=== PATIENT | male | born 1940 | race Caucasian/White ===

== ENCOUNTER 2016-10-22 06:41 | Day surgery (SDC) | payer OTHER ==
[2016-10-07 10:29] VITALS: Ht 172.7 cm; Wt 75.0 kg
--- NOTE | 2016-10-07 11:14 | PAT Medication Instructions ---
Service Date Oct 07, 2016. Current Home Medication List Albuterol (Proair Hfa), 2 PUFF INH Q4H PRN for SOB/Wheezing Aspirin (Aspirin Ec), 81 MG PO QAM Atorvastatin (Lipitor), 20 MG PO QAM Citalopram (Citalopram Hydrobromide), 20 MG PO QAM Donepezil Hydrochloride (Aricept), 10 MG PO QPM Finasteride (Proscar), 5 MG PO HS Fluticasone Propionate (Fluticasone Propionate), 1 SPRAY NA DAILY Folic Acid (Folvite *), 1 MG PO QAM Hydrocortisone (Hydrocortisone 2.5%), 1 APPLN TOP BID PRN Loratadine (Claritin), 10 MG PO QAM Methotrexate (Methotrexate), 15 MG PO WK Metoprolol Succinate (Toprol Xl), 25 MG PO QAM Omeprazole (Prilosec), 20 MG PO QAM Prednisone (Prednisone), 10 MG PO QAM Tamsulosin Hcl (Flomax), 0.4 MG PO HS Tiotropium [place] (Spiriva Handihaler), 1 CAP INH DAILY PRN for SOB/Wheezing Medication Instructions For Your Scheduled Surgery Aspirin (Aspirin Ec), 81 MG PO QAM (surgeon will call you with instructions) Methotrexate (Methotrexate), 15 MG PO WK (patient will check with whipped topping mixer for instructions) - Hold the following medications 24 hours prior to surgery: Hydrocortisone (Hydrocortisone 2.5%), 1 APPLN TOP BID PRN - Hold the following medications the morning of surgery: Loratadine (Claritin), 10 MG PO QAM Folic Acid (Folvite *), 1 MG PO QAM - Take the following medications the morning of surgery with a sip of water: Tiotropium [place] (Spiriva Handihaler), 1 CAP INH DAILY PRN for SOB/Wheezing Prednisone (Prednisone), 10 MG PO QAM Omeprazole (Prilosec), 20 MG PO QAM Metoprolol Succinate (Toprol Xl), 25 MG PO QAM Fluticasone Propionate (Fluticasone Propionate), 1 SPRAY NA DAILY Atorvastatin (Lipitor), 20 MG PO QAM Citalopram (Citalopram Hydrobromide), 20 MG PO QAM Albuterol (Proair Hfa), 2 PUFF INH Q4H PRN for SOB/Wheezing (bring with you to hospital on day of surgery) - Take the following medications as scheduled the night before surgery: Tamsulosin Hcl (Flomax), 0.4 MG PO HS Finasteride (Proscar), 5 MG PO HS Donepezil Hydrochloride (Aricept), 10 MG PO QPM Albuterol (Proair Hfa), 2 PUFF INH Q4H PRN for SOB/Wheezing If you have any questions please call us at [phone] or [phone] ( Reyna) or [phone]
--- NOTE | 2016-10-07 12:00 | DIAGNOSTIC IMAGING REPORT ---
CHEST 2 VIEWS ROUTINE CLINICAL HISTORY: Preoperative chest. COMPARISON STUDY: 04/04/2012 FINDINGS: The cardiac and mediastinal contours remain stable. Underlying emphysema is suspected.[There is no failure. There is no lobar consolidation. There are no pleural effusions. There is an equivocal 11 mm right upper lung zone nodule. CT scanning is recommended in follow-up. On the lateral view, there are multiple nonspecific upper abdominal calcifications. IMPRESSION: Equivocal 11 mm right upper lung zone pulmonary nodule. CT scanning is recommended in follow-up. Electronically signed by: Cody Deluna M.D. 10/07/2016 11:58 AM Dictated Date/Time: 10/07/2016 11:54 AM
[2016-10-07 12:03] LABS: BASO % 0.2 %; BASO ABS # 0.02 K/uL (0-0.2); COMPLETE YES; EOS % 0.9 %; HEMATOCRIT 44.8 % (42-52); IG% 0.3 %; LYMPH % 12.8 %; LYMPH ABS # 1.28 K/uL (1.2-3.4); MEAN CELL VOLUME 98.7 fL (80-100); MEAN CORPUSCULAR HEMOGLOBIN 32.4 pg (25-34); MEAN CORPUSCULAR HGB CONC 32.8 g/dl (32-36); MEAN PLATELET VOLUME 9.5 fL (7.4-10.4); NEUT % 77.8 %; PLATELET COUNT 246 K/uL (130-400); RED BLOOD COUNT 4.54 M/uL (4.7-6.1); WHITE BLOOD COUNT 9.97 K/uL (4.8-10.8)
[2016-10-07 12:03] LABS: URINE APPEARANCE CLEAR (CLEAR); URINE BILIRUBIN NEG (NEG); URINE COLOR YELLOW; URINE NITRITE NEG (NEG); URINE PH 5.5 (4.5-7.5); URINE SPECIFIC GRAVITY 1.006 (1.000-1.030); UROBILINOGEN NEG (NEG)
[2016-10-07 12:10] LABS: MANUAL MICROSCOPIC REQUIRED? NO; REVIEW REQ? NO
--- NOTE | 2016-10-07 12:28 | DIAGNOSTIC IMAGING REPORT ---
CERVICAL SPINE 3 VIEWS CLINICAL HISTORY: Preoperative examination. FINDINGS: Lateral views of the cervical spine in the neutral, flexion, and extension positions are obtained. No prior studies are available for comparison at the time of dictation. The skeletal structures are osteopenic. There is no radiographic evidence of fracture on these lateral views. The spinolaminar line appears intact. The atlantodental articulation appears maintained. There is 5 mm of anterolisthesis at C3-C4 and 3 mm of anterolisthesis at C4-C5. Minimal retrolisthesis is present at C5-C6. This persists on the flexion/extension views. No worsening bony subluxation is identified on flexion/extension. Anterior osteophytes are seen from C4 through C6. Advanced degenerative disc space narrowing is identified at C5-C6 and C6-C7. Moderate narrowing is seen at C4-C5. Posterior disc osteophyte complexes from C4-C5 through C6-C7 likely contribute to acquired compromise of the central canal. The spinous processes appear intact. Facet arthropathy is noted in the lower cervical region. The prevertebral soft tissues are within normal limits. A cardiac pacemaker and pacemaker leads are identified. IMPRESSION: 1. Osteopenia and spondylotic change as above. 2. No acute bony abnormality is identified. 3. There is no progressive bony subluxation on the flexion/extension views. Dictated: 10/07/2016 11:51 AM Transcribed: 10/07/2016 12:27 PM [email or web address] Electronically signed by: Justice Nava M.D. 10/07/2016 12:36 PM Dictated Date/Time: 10/07/2016 11:51 AM
[2016-10-07 13:31] LABS: BUN/CREATININE RATIO 16.6 (10-20); CALCIUM 9.1 mg/dl (8.5-10.1); CREATININE 1.1 mg/dl (0.60-1.40); POTASSIUM 4.4 mmol/L (3.5-5.1)
[~2016-10-22] VITALS: Ht 172.7 cm; Wt 75.0 kg
[~2016-10-22 06:41] MED LIST: ALBU1AER9 INH; ANSHCCR/ TOP; ASPI81TA28 PO; ATOR-22 PO; CIPROFLOXACIN / D5W 400 MG IV SCH; CLR10 PO; CLX20 PO; DONE10TA12 PO; FINA5TAB PO; FLNIN/; FLV1 PO; LACTATED RINGER'S 1000ML IV SCH; METH2.5T PO; METO25TA3 PO; PRED-301 PO; PRLSR20 PO; TAMS0.4C38 PO; TIOTCAP INH
[2016-10-22] MEDS ORDERED: FENTANYL CITRATE INJ 50 MCG/1 ML 2 ML VIAL ONE (07:37)
[2016-10-22] MEDS ORDERED: PROPOFOL IV EMULSION 10 MG/ML 20 ML VIAL IV ONE ×2 (07:37→08:32)
[2016-10-22] MEDS ORDERED: LIDOCAINE HCL 2% 2 ML VIAL (20MG/ML) ONE ×2 (07:37→08:32)
[2016-10-22] MEDS ORDERED: MIDAZOLAM HCL 1 MG/ML 2ML VIAL ONE (07:37)
[2016-10-22] MEDS ORDERED: ONDANSETRON INJ 2 MG/ML 2 ML VIAL ONE ×2 (07:37→08:32)
[2016-10-22] MEDS ORDERED: DEXAMETHASONE SOD INJ 4 MG/ML VIAL ONE ×3 (07:37→09:19)
[2016-10-22 07:38] VITALS: BP 145/81; PULSE 70; TEMP 36.6; O2SAT 97
--- NOTE | 2016-10-22 07:46 | History & Physical Bridge Note ---
H&P Re-Evaluation Bridge Note: I have examined the patient, reviewed the History & Physical and in the interval since the performance of the History & Physical I have noted the following changes of clinical significance: No changes noted
[2016-10-22] MEDS ORDERED: BUPIVACAINE 0.5 % 5 MG/1 ML MPF 30ML VIAL ONE (08:05)
[2016-10-22] MEDS ORDERED: BACI500O11 TOP (08:22)
[2016-10-22] MEDS ORDERED: SULF800T23 PO (08:22)
[2016-10-22] MEDS ORDERED: OXYC-57 PO (08:22)
[2016-10-22] MEDS ORDERED: PHEN-939 PO (08:22)
[2016-10-22] MEDS ORDERED: BACITRACIN OINT 15 GM TUBE ONE (08:53)
[2016-10-22] MEDS ORDERED: ONDANSETRON INJ 2 MG/ML 2 ML VIAL IV PRN (09:15)
[2016-10-22] MEDS ORDERED: ATROPINE SULFATE 0.1 MG/ML 5ML SYR IV PRN (09:15)
[2016-10-22] MEDS ORDERED: FENTANYL CITRATE INJ 50 MCG/1 ML 2 ML VIAL IV PRN (09:15)
[2016-10-22] MEDS ORDERED: LABETALOL HCL IV 5 MG/ML 20ML IV PRN (09:15)
[2016-10-22] MEDS ORDERED: KETOROLAC TROMETHAMINE 30 MG/ML VIAL IV. PRN (09:15)
[2016-10-22] MEDS ORDERED: BELLADONNA/OPIUM SUPP 60 MG SUPP PR ONE (09:19)
--- NOTE | 2016-10-22 09:50 | Discharge Instructions ---
Discharge Instructions Date of Service October 22, 2016. Admission Reason for Admission: Phimosis, Benign Prostatic Hypertrophy Discharge Discharge Diagnosis / Problem: BPH, phimosis s/p GLTURP and circumcision Discharge Goals Goal(s): Decrease discomfort, Improve function, Improve disease control, Therapeutic intervention Activity Recommendations Activity Limitations: per Instructions/Follow-up section Lifting Limitations: no more than 25 pounds, gradually increase as tolerated ( over first week) Exercise/Sports Limitations: until after follow-up appointment May Resume Sexual Activity: after two weeks Shower/Bathe: tomorrow (may shower, no tub bath for 2 weeks) . Instructions / Follow-Up Instructions / Follow-Up As scheduled for postop visit and catheter removal Bacitracin ointment to incision for 2 weeks Remove dressing in 24 hours, sooner if uncomfortable Catheter to gravity drainage, some blood expected Discharge Diet Recommended Diet: Regular Diet (good fluid intake) Procedures Procedures Performed: Circumcision, GLTURP Pending Studies Studies pending at discharge: yes List of pending studies: Path report Medical Emergencies . Who to Call and When: Medical Emergencies: If at any time you feel your situation is an emergency, please call 911 immediately. . Non-Emergent Contact Non-Emergency issues call your: Urologist Call Non-Emergent contact if: you have a fever, temperature is above 101, your pain is not controlled, your pain is worsening, your pain is unusual for you, your pain is concerning you, wound has increased drainage, wound has increased redness, wound has increased pain, you have any medication questions . . "Provider Documentation" section prepared by Anand Chen. . VTE Core Measure Inpt VTE Proph given/why not?: SCD's [place] Drug Monitoring Program Search Results: patient reviewed within database, no issues identified
--- NOTE | 2016-10-22 09:53 | [facility] Post Operative Brief Note ---
Immediate Operative Summary Operative Date October 22, 2016. Pre-Operative Diagnosis Benign prostatic hypertrophy with urinary obstruction, paraphimosis, urinary retention, urinary tract infection Post-Operative Diagnosis Same as preoperative diagnosis Procedure(s) Performed Circumcision, GLTURP Surgeon Dr. Anand Chen Associate Music Professor Surgeon(s) None Estimated Blood Loss 10 mL Findings Open fossa, 73K J used, excellent cosmesis and hemostasis on circ Specimens Permanent specimens A: Foreskin Drains 20 fr 10 cc H2O Anesthesia GALMA + local Complication(s) None Disposition Recovery Room / PACU
[2016-10-22] MEDS ORDERED: PHENAZOPYRIDINE HCL 100 MG TAB PO PRN (10:00)
[2016-10-22] MEDS ORDERED: OXYCODONE/ACETAMINOPHEN 5-325 TAB PO PRN (10:00)
--- NOTE | 2016-10-22 10:39 | Anesthesiology Progress Note ---
Anesthesia Post Op Note Date & Time October 22, 2016 at 10:39 Vital Signs Pain Intensity: 0 Vital Signs Past 12 Hours Date Time Temp Pulse Resp B/P Pulse Ox O2 Delivery O2 Flow Rate FiO2 10/22/16 10:35 36.5 60 19 153/79 95 Room Air 10/22/16 10:31 60 16 97 10/22/16 10:31 60 16 10/22/16 10:30 143/78 10/22/16 10:26 60 16 10/22/16 10:26 60 16 97 10/22/16 10:25 144/79 10/22/16 10:22 60 19 96 10/22/16 10:22 60 19 10/22/16 10:20 146/72 10/22/16 10:17 60 15 96 10/22/16 10:17 60 15 10/22/16 10:16 60 20 10/22/16 10:16 60 20 96 10/22/16 10:15 142/78 10/22/16 10:11 60 18 100 10/22/16 10:11 60 18 10/22/16 10:10 150/72 10/22/16 10:09 60 16 100 10/22/16 10:09 60 16 10/22/16 10:05 139/83 10/22/16 10:04 60 20 100 10/22/16 10:04 60 20 10/22/16 10:03 60 19 100 10/22/16 10:03 60 19 10/22/16 10:01 128/79 10/22/16 09:58 60 19 10/22/16 09:58 60 19 100 10/22/16 09:55 148/78 10/22/16 09:53 60 16 10/22/16 09:53 60 16 100 10/22/16 09:50 150/77 10/22/16 09:48 61 29 140/74 100 10/22/16 09:48 36.1 61 16 140/74 100 Mask 10 10/22/16 09:48 61 29 10/22/16 07:38 36.6 70 20 145/81 97 Room Air Notes Mental Status: alert / awake / arousable, participated in evaluation Pt Amnestic to Procedure: Yes Nausea / Vomiting: adequately controlled Pain: adequately controlled Airway Patency, RR, SpO2: stable & adequate BP & HR: stable & adequate Hydration State: stable & adequate Anesthetic Complications: no major complications apparent
[2016-10-22 10:40] VITALS: BP 147/78; PULSE 62; TEMP 36.5; O2SAT 97
[2016-10-22 11:10] VITALS: BP 132/63; PULSE 60; TEMP 36; O2SAT 98
--- NOTE | 2016-10-22 11:43 | OPERATIVE REPORT ---
DATE OF OPERATION: 10/22/2016 PREOPERATIVE DIAGNOSES: Phimosis, history of paraphimosis, benign prostatic hypertrophy with urinary retention and history of urinary tract infection. POSTOPERATIVE DIAGNOSES: Same. PROCEDURE: Circumcision and GreenLight vaporization of the prostate. SURGEON: Anand Chen MD RECORD RETRIEVAL SPECIALIST: None. ANESTHESIA: General anesthesia with laryngeal mask plus penile block. COMPLICATIONS: None. ESTIMATED BLOOD LOSS: 10 mL. SPECIMENS SENT TO PATHOLOGY: Foreskin. DRAINS LEFT IN PLACE: Include a 20-Kyr[place]z Paniagua catheter with 10 mL of sterile water in the balloon. FINDINGS: Excellent cosmesis and hemostasis of circumcision, excellent hemostasis after GreenLight TURP with 73,000 joules of energy used. BRIEF HISTORY OF PRESENT ILLNESS: Mr. Szymanski is a 76-year-old male who I have seen as an outpatient for history of difficulties with intermittent urinary retention, urinary tract infection and bothersome voiding symptoms despite maximum medical therapy. He also has a history of recurrent paraphimosis, which has been bothersome. He is being brought to the operating room for GreenLight vaporization of the prostate to manage his obstructive urinary symptoms and wishes to have the circumcision at the same time for his history of paraphimosis. Please see H\T\P for further details. Intravenous ciprofloxacin provided for antibiotic coverage and SCDs used for DVT prophylaxis. DESCRIPTION OF PROCEDURE: The patient was properly identified and brought to the operative suite. After identification and appropriate consent on the chart, general anesthesia with laryngeal mask was initiated. The patient was prepped and draped in standard fashion for this procedure. time study technician-out procedure was followed. A penile ring block was performed using plain local anesthesia for additional postoperative analgesia. After this was done, the penis was marked with proximal and distal ring, which were then incised. Excess foreskin was removed using Bovie cautery and Metzenbaum scissors as necessary in a sleeve fashion. After this was removed, it was sent for pathologic analysis. Hemostasis was obtained using Bovie as necessary for superficial bleeders and then, the 2 skin edges were reapproximated using interrupted 2-0 Vicryl, 3-0 Chromic and 3-0 Vicryl suture. The excess skin at the level of the frenulum was removed and a box suture was used at the 6 o'clock position. After this was complete, excellent hemostasis and cosmesis of the closure was noted with good penile skin coverage. Attention was then turned to the GreenLight vaporization of the prostate. GreenLight laser resectoscope was introduced into the bladder using a visual obturator entered under direct visualization. A short but obstructive prostate gland was noted. Grade II trabeculation of the bladder was appreciated with no intravesical papillary lesions, calculi or masses. No worrisome mucosal changes were noted. Ureteral orifices were noted to be in the normal anatomic location and effluxing clear yellow urine. Using a side fire laser resectoscope, circumferential vaporization of the prostate was completed for a total of 73,000 joules of energy. Relaxing incisions were made at the 5 and 7 o'clock position to avoid bladder neck contracture and the bladder neck was dropped down to the level of the trigone of the bladder. Great care was taken to avoid injuring the ureteral orifices, which were noted to be free of any damage at the end of the case. After this was completed, the prostate was noted to be visually unobstructed with excellent hemostasis. Bladder was partially distended and resectoscope was removed. A 20-Kyr[place]z Paniagua catheter was placed with return of clear yellow urine with 10 mL of sterile water in the balloon. Catheter was placed to gravity drainage and a sterile dressing was placed over the circumcision using bacitracin, Xeroform sponge and a gently wrapped Coban. Belladonna and opium suppository were provided for additional postoperative analgesia. Anesthesia was reversed. The patient was transferred to recovery room in stable condition. FOLLOWUP CARE: The patient will be discharged home with Paniagua catheter in place. Outpatient trial of void is arranged as well as postoperative visit. He is provided with a prescription for Bactrim for antibiotic coverage, Percocet, Pyridium and bacitracin for his incision. Wound care is reviewed with the patient and the patient's family. The patient is instructed to contact our service should he note any fevers, chills, nausea, vomiting or other significant difficulties in the postoperative period. I attest to the content of the Intraoperative Record and any orders documented therein. Any exceptio ns are noted below.
[2016-10-22 11:50] VITALS: BP 132/71; PULSE 63; TEMP 36.8; O2SAT 99
[2016-10-22] MEDS ORDERED: CIPROFLOXACIN 400MG / D5W IV SCH (14:45)
== END 2016-10-22 12:12 | disposition home or self-care (01) ==
LOC: C.ACU 06:41
PROVIDERS: ATTEND Urology
DX: N47.1 Phimosis (principal); N40.1 Benign prostatic hyperplasia with lower urinary tract symptoms; N13.8 Other obstructive and reflux uropathy; R33.9 Retention of urine, unspecified; N39.0 Urinary tract infection, site not specified; I10 Essential (primary) hypertension; J44.9 Chronic obstructive pulmonary disease, unspecified; G47.33 Obstructive sleep apnea (adult) (pediatric); M19.90 Unspecified osteoarthritis, unspecified site; F32.9 Major depressive disorder, single episode, unspecified; Z79.82 Long term (current) use of aspirin; Z88.0 Allergy status to penicillin; Z87.891 Personal history of nicotine dependence; Z68.25 Body mass index [BMI] 25.0-25.9, adult; Z80.9 Family history of malignant neoplasm, unspecified; Z82.49 Family history of ischemic heart disease and other diseases of the circulatory system

== ENCOUNTER 2016-10-28 11:11 | Observation (INO) | payer OTHER ==
[~2016-10-28] VITALS: Ht 170.2 cm; Wt 75.0 kg
[~2016-10-28 11:11] MED LIST changes: +BACI500O11 TOP; -CIPROFLOXACIN / D5W 400 MG IV SCH; -LACTATED RINGER'S 1000ML IV SCH; +OXYC-57 PO; +PHEN-939 PO; +SULF800T23 PO
[2016-10-28] MEDS ORDERED: CEFTRIAXONE SOD INJ 1 GM ADDVIAL IV STA (11:35)
[2016-10-28] MEDS ORDERED: SODIUM CHLORIDE 0.9% 1000ML 1,000 ML IV STA (11:35)
[2016-10-28] MEDS ORDERED: FOLI1TAB7 PO (11:38)
[2016-10-28] MEDS ORDERED: VNTHFA/IN INH (11:38)
[2016-10-28] MEDS ORDERED: SPRIN/30 INH (11:38)
[2016-10-28 11:43] LABS: BASO % 0.1 %; BASO ABS # 0.01 K/uL (0-0.2); COMPLETE YES; EOS % 1.2 %; HEMATOCRIT 42.8 % (42-52); IG% 0.2 %; LYMPH ABS # 1.06 K/uL (1.2-3.4); MEAN CELL VOLUME 97.9 fL (80-100); MEAN CORPUSCULAR HEMOGLOBIN 32.5 pg (25-34); MEAN CORPUSCULAR HGB CONC 33.2 g/dl (32-36); MEAN PLATELET VOLUME 9.9 fL (7.4-10.4); MONO % 11.8 %; NEUT % 78.7 %; PLATELET COUNT 233 K/uL (130-400); RED BLOOD COUNT 4.37 M/uL (4.7-6.1); WHITE BLOOD COUNT 13.32 K/uL (4.8-10.8)
[2016-10-28 11:56] LABS: ALT/SGPT 23 U/L (12-78); AST/SGOT 16 U/L (15-37); BLOOD UREA NITROGEN 23 mg/dl (7-18); BUN/CREATININE RATIO 17.8 (10-20); CALCIUM 8.5 mg/dl (8.5-10.1); CARBON DIOXIDE 29 mmol/L (21-32); CHLORIDE 102 mmol/L (98-107); GLUCOSE 116 mg/dl (70-99); INR 1.1 (0.9-1.1); PARTIAL THROMBOPLASTIN RATIO 1.1; POTASSIUM 4.1 mmol/L (3.5-5.1); PROTHROMBIN TIME (PATIENT) 11.4 SECONDS (9.0-12.0); SODIUM 136 mmol/L (136-145)
[2016-10-28 12:01] LABS: ALKALINE PHOSPHATASE 59 U/L (45-117); CKMB/CK RATIO 2.1 (0-3.0)
--- NOTE | 2016-10-28 12:04 | DIAGNOSTIC IMAGING REPORT ---
CHEST ONE VIEW PORTABLE CLINICAL HISTORY: Fever. Sepsis. COMPARISON STUDY: Chest radiograph October 07, 2016. FINDINGS: 1.4 cm nodular density projecting over the posterior right ninth rib is unchanged since exam of April 04, 2012. This is likely benign. A dual lead right pacemaker is in place. There is no evidence of pulmonary edema. No pneumothorax or pleural effusion is present. A 1.1 cm nodular density projecting over left lower lung is noted. IMPRESSION: 1. No acute cardiopulmonary findings. 2. 1.1 cm nodular density projecting over left lower lung which was likely present on prior exams. This could reflect a nodule or nipple shadow. This is probably benign. Electronically signed by: Tano Acuna M.D. 10/28/2016 12:02 PM Dictated Date/Time: 10/28/2016 12:00 PM
--- NOTE | 2016-10-28 12:19 | DIAGNOSTIC IMAGING REPORT ---
CT HEAD WITHOUT CONTRAST (CT) CLINICAL HISTORY: Confusion, fever, sepsis. COMPARISON STUDY: No previous studies for comparison. TECHNIQUE: Axial CT of the brain is performed from the vertex to the skull base. IV contrast was not administered for this examination. CT DOSE: 537.48 mGy.cm FINDINGS: There is a left middle cranial fossa arachnoid cyst. There is no CT evidence of acute cortical infarction. There is no midline shift. There is no acute hemorrhage. There are patchy white matter hypodensities likely on a small vessel basis. There is no evidence of pathologic ventricular dilatation. There is no evidence of acute sinusitis IMPRESSION: Left anterior temporal arachnoid cyst. No acute intracranial findings. Electronically signed by: Cody Deluna M.D. 10/28/2016 12:17 PM Dictated Date/Time: 10/28/2016 12:16 PM
[2016-10-28 13:33] LABS: URINE APPEARANCE CLEAR (CLEAR); URINE BILIRUBIN NEG (NEG); URINE COLOR YELLOW; URINE EPITHELIAL CELL AUTO 0-5 /lpf (0-5); URINE NITRITE NEG (NEG); URINE SPECIFIC GRAVITY 1.013 (1.000-1.030); UROBILINOGEN NEG (NEG); ZZURINE CULT IF INDIC CATH NO
[2016-10-28 13:42] LABS: MANUAL MICROSCOPIC REQUIRED? NO; REVIEW REQ? NO
--- NOTE | 2016-10-28 15:00 | EMERGENCY ROOM VISIT NOTE ---
History Report prepared by Deepak: Sharon Alves Under the Supervision of: Dr. Connor Azevedo D.O. First contact with patient: 11:35 Chief Complaint: CONFUSION Stated Complaint: CONFUSION,SURGERY ON PROSTATE ON 10/22/16,IN PAIN Nursing Triage Summary: pt c/o back pain, moving about on the bed, unable to find a comfortable position. Per family, pt had prostate surgery recently and had the catheter removed a few days ago and that he has been hallucinating, undressing inappropriate times. They notice the confusion more at night. History of Present Illness The patient is a 76 year old male who presents to the Emergency Room with complaints of constant confusion beginning 6 days ago. The patient's sister reports that the patient had prostate surgery and was circumcised 6 days ago and was doing alright after the surgery but seemed much more energized than usual. She states that the patient seemed more confused and when he went to get his catheter removed a few days ago the doctor told her to come in to the ED. She reports that the patient was taken off Bactrim at the appointment and she reports that he never took the Oxycodone that he was prescribed. The patient complains of constant back pain beginning a few months ago that has not changed , non-productive cough, and constant drowsiness. He denies any fever, headache, abdominal pain, chest pain, shortness of breath, and difficulty urinating. The sister reports that the patient hallucinates and sometimes talks to people that aren't there and has slight dementia but this unusual behavior since his surgery. The patient states that he has not seen Dr. Chen, who did his surgery , in a couple of months and his notes that he saw him a few days ago. Source of History: patient, family Onset: 6 days ago Position: other (global) Quality: other (confusion) Timing: constant Associated Symptoms: + cough, No SOB, No abdominal pain, No chest pain, No fevers, No headache, No urinary symptoms Note: The patient complains of constant drowsiness. His notes hallucinations. Review of Systems See HPI for pertinent positives & negatives. A total of 10 systems reviewed and were otherwise negative. Past Medical & Surgical Medical Problems: (1) Cellulitis (2) COPD (chronic obstructive pulmonary disease) (3) Early onset Alzheimer's dementia (4) HLD (hyperlipidemia) (5) HTN (hypertension) (6) Osteoporosis (7) Rheumatoid arthritis (8) Sinus node dysfunction Surgical Problems: (1) History of carpal tunnel surgery (2) S/P bunionectomy Family History Diabetes mellitus FH: gallbladder disease FH: heart disease Hypertension Social History Smoking Status: Former Smoker Alcohol Use: none Marital Status: Housing Status: lives with family Current/Historical Medications Scheduled Aspirin (Aspirin Ec), 81 MG PO QAM Atorvastatin (Lipitor), 20 MG PO QAM Bacitracin (Topical) (Bacitracin), 1 APPLN TOP TID Citalopram (Citalopram Hydrobromide), 20 MG PO QAM Donepezil Hydrochloride (Aricept), 10 MG PO QPM Finasteride (Proscar), 5 MG PO HS Fluticasone Propionate (Fluticasone Propionate), 1 SPRAY NA DAILY Folic Acid (Folvite), 1 MG PO DAILY Loratadine (Claritin), 10 MG PO QAM Methotrexate (Methotrexate), 15 MG PO WK Metoprolol Succinate (Toprol Xl), 25 MG PO QAM Omeprazole (Prilosec), 20 MG PO QAM Prednisone (Prednisone), 10 MG PO QAM Tamsulosin Hcl (Flomax), 0.4 MG PO HS Tiotropium [place] (Spiriva Handihaler), 1 CAP INH DAILY Scheduled PRN Albuterol Hfa (Ventolin Hfa), 2 PUFFS INH Q4 PRN for SOB/Wheezing Hydrocortisone (Hydrocortisone 2.5%), 1 APPLN TOP BID PRN Allergies Coded Allergies: Penicillins (Verified Allergy, Unknown, reaction unknown, 10/22/16) Physical Exam Vital Signs Date Time Temp Pulse Resp B/P Pulse Ox O2 Delivery O2 Flow Rate FiO2 10/28/16 14:01 61 18 139/94 97 Room Air 10/28/16 13:05 76 10/28/16 12:39 64 20 136/62 94 Room Air 10/28/16 12:31 69 10/28/16 11:16 36.6 76 20 115/70 94 Room Air Physical Exam CONSTITUTIONAL/VITAL SIGNS: Reviewed / noted above. GENERAL: Non-toxic in appearance. INTEGUMENTARY: Warm, dry, and [place]. HEAD: Normocephalic. EYES: without scleral icterus or trauma. ENT/OROPHARYNX: clear and moist. LYMPHADENOPATHY/NECK: Is supple without lymphadenopathy or meningismus. RESPIRATORY: Lungs clear and equal. CARDIOVASCULAR: Regular rate and rhythm. GI/ABDOMEN: Soft and nontender. No organomegaly or pulsatile mass. No rebound or guarding. Normal bowel sounds. EXTREMITIES: Warm and well perfused. BACK: No CVA tenderness. NEUROLOGICAL: Intact without focal deficits. PSYCHIATRIC: normal affect. MUSCULOSKELETAL: Normally developed with good muscle tone. : There are sutures in place consistent with recent circumcision, no obvious infection or abnormal discharge. Medical Decision & Procedures ER Provider Diagnostic Interpretation: Radiology results as stated below per my review and radiologist interpretation: CHEST ONE VIEW PORTABLE FINDINGS: 1.4 cm nodular density projecting over the posterior right ninth rib is unchanged since exam of April 04, 2012. This is likely benign. A dual lead right pacemaker is in place. There is no evidence of pulmonary edema. No pneumothorax or pleural effusion is present. A 1.1 cm nodular density projecting over left lower lung is noted. IMPRESSION: 1. No acute cardiopulmonary findings. 2. 1.1 cm nodular density projecting over left lower lung which was likely present on prior exams. This could reflect a nodule or nipple shadow. This is probably benign. Electronically signed by: Tano Acuna M.D. 10/28/2016 12:02 PM Dictated Date/Time: 10/28/2016 12:[address] HEAD WITHOUT CONTRAST (CT) FINDINGS: There is a left middle cranial fossa arachnoid cyst. There is no CT evidence of acute cortical infarction. There is no midline shift. There is no acute hemorrhage. There are patchy white matter hypodensities likely on a small vessel basis. There is no evidence of pathologic ventricular dilatation. There is no evidence of acute sinusitis IMPRESSION: Left anterior temporal arachnoid cyst. No acute intracranial findings. Electronically signed by: Cody Deluna M.D. 10/28/2016 12:17 PM Dictated Date/Time: 10/28/2016 12:16 PM Laboratory Results 10/28/16 11:30 Red Blood Count 4.37, Mean Corpuscular Volume 97.9, Mean Corpuscular Hemoglobin 32.5, Mean Corpuscular Hemoglobin Concent 33.2, Mean Platelet Volume 9.9, Neutrophils (%) (Auto) 78.7, Lymphocytes (%) (Auto) 8.0, Monocytes (%) (Auto) 11.8, Eosinophils (%) (Auto) 1.2, Basophils (%) (Auto) 0.1, Neutrophils # (Auto ) 10.50, Lymphocytes # (Auto) 1.06, Monocytes # (Auto) 1.57, Eosinophils # (Auto ) 0.16, Basophils # (Auto) 0.01 10/28/16 11:30 Test 10/28/16 11:28 10/28/16 11:30 10/28/16 12:10 Bedside Glucose 118 mg/dl (70-99) White Blood Count 13.32 K/uL (4.8-10.8) Red Blood Count 4.37 M/uL (4.7-6.1) Hemoglobin 14.2 g/dL (14.0-18.0) Hematocrit 42.8 % (42-52) Mean Corpuscular Volume 97.9 fL (80-100) Mean Corpuscular Hemoglobin 32.5 pg (25-34) Mean Corpuscular Hemoglobin Concent 33.2 g/dl (32-36) Platelet Count 233 K/uL (130-400) Mean Platelet Volume 9.9 fL (7.4-10.4) Neutrophils (%) (Auto) 78.7 % Lymphocytes (%) (Auto) 8.0 % Monocytes (%) (Auto) 11.8 % Eosinophils (%) (Auto) 1.2 % Basophils (%) (Auto) 0.1 % Neutrophils # (Auto) 10.50 K/uL (1.4-6.5) Lymphocytes # (Auto) 1.06 K/uL (1.2-3.4) Monocytes # (Auto) 1.57 K/uL (0.11-0.59) Eosinophils # (Auto) 0.16 K/uL (0-0.5) Basophils # (Auto) 0.01 K/uL (0-0.2) RDW Standard Deviation 48.8 fL (36.4-46.3) RDW Coefficient of Variation 13.6 % (11.5-14.5) Immature Granulocyte % (Auto) 0.2 % Immature Granulocyte # (Auto) 0.02 K/uL (0.00-0.02) Prothrombin Time 11.4 SECONDS (9.0-12.0) Prothromb Time International Ratio 1.1 (0.9-1.1) Activated Partial Thromboplast Time 28.1 SECONDS (21.0-31.0) Partial Thromboplastin Ratio 1.1 Anion Gap 5.0 mmol/L (3-11) Estimated GFR () 61.9 Estimated GFR (Non- 53.4 BUN/Creatinine Ratio 17.8 (10-20) Calcium Level 8.5 mg/dl (8.5-10.1) Total Bilirubin 1.4 mg/dl (0.2-1) Direct Bilirubin 0.3 mg/dl (0-0.2) Aspartate Amino Transf (AST/SGOT) 16 U/L (15-37) Alanine Aminotransferase (ALT/SGPT) 23 U/L (12-78) Alkaline Phosphatase 59 U/L (45-117) Total Creatine Kinase 174 U/L (39-308) Creatine Kinase MB 3.7 ng/ml (0.5-3.6) Creatine Kinase MB Ratio 2.1 (0-3.0) Troponin I < 0.015 ng/ml (0-0.045) Total Protein 6.8 gm/dl (6.4-8.2) Albumin 3.3 gm/dl (3.4-5.0) Lipase 156 U/L (73-393) Urine Color YELLOW Urine Appearance CLEAR (CLEAR) Urine pH 6.0 (4.5-7.5) Urine Specific [place] 1.013 (1.000-1.030) Urine Protein TRACE (NEG) Urine Glucose (UA) NEG (NEG) Urine Ketones 1+ (NEG) Urine Occult Blood 2+ (NEG) Urine Nitrite NEG (NEG) Urine Bilirubin NEG (NEG) Urine Urobilinogen NEG (NEG) Urine Leukocyte Esterase TRACE (NEG) Urine WBC (Auto) 1-5 /hpf (0-5) Urine RBC (Auto) 0-4 /hpf (0-4) Urine Hyaline Casts (Auto) 1-5 /lpf (0-5) Urine Epithelial Cells (Auto) 0-5 /lpf (0-5) Urine Bacteria (Auto) NEG (NEG) Lactic Acid Level 1.2 mmol/L (0.4-2.0) Laboratory results as stated above per my review. Medications Administered Medications (Trade) Dose Ordered Sig/Ethan Route Start Time Stop Time Status Last Admin Dose Admin Sodium Chloride (Nss 1000ml) 1,000 ml @ 999 mls/hr Q1H1M STAT IV 5/10/17 11:35 10/28/16 12:35 DC 10/28/16 12:16 999 MLS/HR Ceftriaxone Sodium (Rocephin Inj) 1 gm NOW STAT IV 10/28/16 11:35 10/28/16 11:36 DC 10/28/16 12:39 1 GM ECG Indication: other (confusion) Rate (beats per minute): 72 Rhythm: normal sinus Findings: no ectopy, other (no acute injury) ED Course 1135: Previous medical records were reviewed. The patient was evaluated in room A2. A complete history and physical examination was performed. 1135: Rocephin Inj 1gm IV, Sodium Chloride 1000 ml @ 999 mls/hr IV. 1354: Discussed the patient's case with Dr. Burkett of [facility]. The patient will be evaluated for further treatment and disposition. 1407: On reevaluation, the patient is doing well. I discussed the results and findings with the patient and his sister. They verbalized agreement of the treatment plan. I spoke with Dr. Burkett of the [facility] Hospitalist Service. The patient will be evaluated for further management and care. Medical Decision Differential includes acute coronary syndrome, myocardial infarction, CVA, TIA, anemia, infection, pneumonia, UTI, pyelonephritis, poor nutrition, dehydration, electrolyte disturbance,hypoglycemia. This is a 76-year-old male who had prostate surgery last and presents to the ED today with confusion. The patient seemed to be somewhat confused after his surgery last week. He was placed on Bactrim after the surgery and continue this until Wednesday when he was started on Cipro. His confusion was felt to be related to the antibiotic. The patient has been having some visual hallucinations and unusual behavior according to the sister, who lives with him. The patient denies any specific complaints. According to the sister, the patient has been having visual hallucinations of people and having unusual behavior like undressing during the middle of the day. Last night he did not sleep throughout the night. He was talking to himself and having conversations with people who were not present. The patient's CT scan of the brain did not show any acute process. His chest x-ray did not show acute disease. White blood cell count was 13.3. The BUN is 23. Lactic acid level was negative. Troponin is negative. Urine did not show obvious infection. Urine cultures been ordered. The patient was treated with IV Rocephin and IV fluids. I spoke to the family about the results. The patient seems to have excessive sleeping but is responsive to verbal symptoms. I spoke with the hospitalist, who will see the patient for further inpatient evaluation for symptoms. Consults Time Called: 1350 Consulting Physician: Dr. Kwadwo Pretty Returned Call: [phone] Discussed the patient's case. The patient will be evaluated for further treatment and disposition. Impression Primary Impression: Confusion Additional Impressions: Dehydration Hallucination, visual Scribe Attestation The scribe's documentation has been prepared under my direction and personally reviewed by me in its entirety. I confirm that the note above accurately reflects all work, treatment, procedures, and medical decision making performed by me. Departure Information Dispostion Being Evaluated By Hospitalist Referrals Kerri Chapman M.D. (PCP) Patient Instructions My [facility] Problem Qualifiers
[2016-10-28] MEDS ORDERED: ACETAMINOPHEN 325 MG TAB PO PRN (15:15)
[2016-10-28] MEDS ORDERED: ATOR10TA82 PO (15:15)
[2016-10-28] MEDS ORDERED: ONDANSETRON INJ 2 MG/ML 2 ML VIAL IV PRN (15:15)
[2016-10-28] MEDS ORDERED: GABA-112 PO (15:15)
[2016-10-28] MEDS ORDERED: PATIENT'S HEIGHT AND/OR WEIGHT NEEDED SCH (15:30)
[2016-10-28] MEDS ORDERED: IV FLUIDS COMPLETED PRN (15:45)
[2016-10-28 16:09] LABS: ARTERIAL BLD GAS O2 SATURATION 97.1 % (90-95); ARTERIAL BLOOD GAS BASE EXCESS -0.2 mEq/L (-9-1.8); ARTERIAL BLOOD GAS HCO3 23 mmol/L (19-24); ARTERIAL BLOOD GAS PO2 91 mmHg (80-95); ARTERIAL BLOOD GAS pH 7.45 (7.35-7.45); O2 ADMINISTRATION ROOM AIR
[2016-10-28 16:10] LABS: ALLEN TEST POS (POS)
[2016-10-28 17:42] VITALS: BP 139/69; PULSE 69; TEMP 36.4; O2SAT 98; Ht 170.2 cm; Wt 75.0 kg
--- NOTE | 2016-10-28 17:49 | History and Physical ---
History & Physical Date & Time of Service: October 28, 2016 at 17:25 Chief Complaint: Altered Mental Status Primary Care Physician: Kerri Chapman M.D. History of Present Illness 76 year old male who presents to the ER with altered mental status. Patient underwent circumcision and GLTURP on 10/[address] Chen. Patient has early onset dementia and lives with his sister who is at the bedside and provides information. She reports that the day following his procedure she noted increased confusion. She reports he was hallucinating and talking to the things he was seeing. She reports he did not make much sense. She reports he also has been very restless. He was given Bactrim to take after the procedure. When he was seen in the office for follow up a few days later, this was changed to Cipro because it was thought that the Bactrim was causing the confusion, however she reports he has not started taking it yet. Symptoms continued through to today and he was referred to the ER for further evaluation. She denies fever and chills. He has been urinating without difficulty. He has had a poor appetite but denies nausea, vomiting, or diarrhea. He has chronic exertional shortness of breath at baseline which the sister thinks is a little worse than normal. No reports of chest pain, lightheadedness, dizziness, or syncopal events. She denies noticing any unilateral weakness, facial droop, or slurred speech. In the ER, patient's work up is unremarkable. He was given a dose of Rocephin. Past Medical/Surgical History Medical Problems: (1) COPD (chronic obstructive pulmonary disease) Status: Chronic (2) Early onset Alzheimer's dementia Status: Chronic (3) HLD (hyperlipidemia) Status: Chronic (4) HTN (hypertension) Status: Chronic (5) Male circumcision Status: Chronic (6) Osteoporosis Status: Chronic (7) Pacemaker Status: Chronic (8) Rheumatoid arthritis Status: Chronic (9) Sinus node dysfunction Status: Chronic Surgical Problems: (1) History of carpal tunnel surgery Status: Chronic (2) S/P bunionectomy Status: Chronic (3) S/P TURP Status: Chronic Family History FH: breast cancer MOTHER Social History Smoking Status: Former Smoker Alcohol Use: former heavy alcohol use Housing status: lives with family Immunizations History of Influenza Vaccine: Yes Influenza Vaccine Date: Jun 26, 2016 History of Pneumococcal: Yes Pneumococcal Date: Jun 26, 2016 Multi-Drug Resistant Organisms History of MDRO: No Allergies Coded Allergies: Penicillins (Verified Allergy, Unknown, reaction unknown, 10/22/16) Home Medications Scheduled Aspirin (Aspirin Ec), 81 MG PO QAM Atorvastatin (Lipitor), 1 TAB PO DAILY Bacitracin (Topical) (Bacitracin), 1 APPLN TOP TID Citalopram (Citalopram Hydrobromide), 20 MG PO QAM Donepezil Hydrochloride (Aricept), 10 MG PO QPM Finasteride (Proscar), 5 MG PO HS Fluticasone Propionate (Fluticasone Propionate), 1 SPRAY NA DAILY Folic Acid (Folvite), 1 MG PO DAILY Gabapentin (Neurontin), 100 MG PO TID Loratadine (Claritin), 10 MG PO QAM Methotrexate (Methotrexate), 15 MG PO WK Metoprolol Succinate (Toprol Xl), 25 MG PO QAM Omeprazole (Prilosec), 20 MG PO QAM Prednisone (Prednisone), 10 MG PO QAM Tamsulosin Hcl (Flomax), 0.4 MG PO HS Tiotropium [place] (Spiriva Handihaler), 1 CAP INH DAILY Scheduled PRN Albuterol Hfa (Ventolin Hfa), 2 PUFFS INH Q4 PRN for SOB/Wheezing Hydrocortisone (Hydrocortisone 2.5%), 1 APPLN TOP BID PRN Review of Systems unable to be completed with patient due to altered mental status Physical Exam Vital Signs Date Time Temp Pulse Resp B/P Pulse Ox O2 Delivery O2 Flow Rate FiO2 10/28/16 15:52 64 18 126/69 97 10/28/16 15:01 64 18 126/69 97 Room Air 10/28/16 14:01 61 18 139/94 97 Room Air 10/28/16 13:05 76 10/28/16 12:39 64 20 136/62 94 Room Air 10/28/16 12:31 69 10/28/16 11:16 36.6 76 20 115/70 94 Room Air General Appearance: no apparent distress Head: normocephalic Eyes: normal inspection ENT: hearing grossly normal Neck: supple, no JVD Respiratory/Chest: lungs clear, normal breath sounds, no respiratory distress Cardiovascular: regular rate, rhythm, no edema, normal peripheral pulses Abdomen/GI: normal bowel sounds, non tender, soft Genitourinary - Male: + pertinent finding (surgical incision noted to the posterior side of the penis, sutures intact, no errythema or drainage noted) Extremities/Musculoskelatal: no calf tenderness, + pertinent finding (finger contractures and hand joint swelling from RA noted) Neurologic/Psych: no motor/sensory deficits, + pertinent finding (sleeping during exam, awakens easily; disoriented to time and situation, poor insight and forgetfullness noted) Skin: normal color, warm/dry Diagnostics Laboratory Results Results Past 24 Hours Test 10/28/16 11:28 10/28/16 11:30 10/28/16 12:10 10/28/16 15:54 Range/Units Bedside Glucose 118 70-99 mg/dl White Blood Count 13.32 4.8-10.8 K/uL Red Blood Count 4.37 4.7-6.1 M/uL Hemoglobin 14.2 14.0-18.0 g/dL Hematocrit 42.8 42-52 % Mean Corpuscular Volume 97.9 80-100 fL Mean Corpuscular Hemoglobin 32.5 25-34 pg Mean Corpuscular Hemoglobin Concent 33.2 32-36 g/dl Platelet Count 233 130-400 K/uL Mean Platelet Volume 9.9 7.4-10.4 fL Neutrophils (%) (Auto) 78.7 % Lymphocytes (%) (Auto) 8.0 % Monocytes (%) (Auto) 11.8 % Eosinophils (%) (Auto) 1.2 % Basophils (%) (Auto) 0.1 % Neutrophils # (Auto) 10.50 1.4-6.5 K/uL Lymphocytes # (Auto) 1.06 1.2-3.4 K/uL Monocytes # (Auto) 1.57 0.11-0.59 K/uL Eosinophils # (Auto) 0.16 0-0.5 K/uL Basophils # (Auto) 0.01 0-0.2 K/uL RDW Standard Deviation 48.8 36.4-46.3 fL RDW Coefficient of Variation 13.6 11.5-14.5 % Immature Granulocyte % (Auto) 0.2 % Immature Granulocyte # (Auto) 0.02 0.00-0.02 K/uL Prothrombin Time 11.4 9.0-12.0 SECONDS Prothromb Time International Ratio 1.1 0.9-1.1 Activated Partial Thromboplast Time 28.1 21.0-31.0 SECONDS Partial Thromboplastin Ratio 1.1 Sodium Level 136 136-145 mmol/L Potassium Level 4.1 3.5-5.1 mmol/L Chloride Level 102 98-107 mmol/L Carbon Dioxide Level 29 21-32 mmol/L Anion Gap 5.0 3-11 mmol/L Blood Urea Nitrogen 23 7-18 mg/dl Creatinine 1.30 0.60-1.40 mg/dl Estimated GFR () 61.9 Estimated GFR (Non- 53.4 BUN/Creatinine Ratio 17.8 10-20 Random Glucose 116 70-99 mg/dl Calcium Level 8.5 8.5-10.1 mg/dl Total Bilirubin 1.4 0.2-1 mg/dl Direct Bilirubin 0.3 0-0.2 mg/dl Aspartate Amino Transf (AST/SGOT) 16 15-37 U/L Alanine Aminotransferase (ALT/SGPT) 23 12-78 U/L Alkaline Phosphatase 59 45-117 U/L Total Creatine Kinase 174 39-308 U/L Creatine Kinase MB 3.7 0.5-3.6 ng/ml Creatine Kinase MB Ratio 2.1 0-3.0 Troponin I < 0.015 0-0.045 ng/ml Total Protein 6.8 6.4-8.2 gm/dl Albumin 3.3 3.4-5.0 gm/dl Lipase 156 73-393 U/L Urine Color YELLOW Urine Appearance CLEAR CLEAR Urine pH 6.0 4.5-7.5 Urine Specific [place] 1.013 1.000-1.030 Urine Protein TRACE NEG Urine Glucose (UA) NEG NEG Urine Ketones 1+ NEG Urine Occult Blood 2+ NEG Urine Nitrite NEG NEG Urine Bilirubin NEG NEG Urine Urobilinogen NEG NEG Urine Leukocyte Esterase TRACE NEG Urine WBC (Auto) 1-5 0-5 /hpf Urine RBC (Auto) 0-4 0-4 /hpf Urine Hyaline Casts (Auto) 1-5 0-5 /lpf Urine Epithelial Cells (Auto) 0-5 0-5 /lpf Urine Bacteria (Auto) NEG NEG Lactic Acid Level 1.2 0.4-2.0 mmol/L Arterial Blood pH 7.45 7.35-7.45 Arterial Blood Partial Pressure CO2 35 35-46 mmHg Arterial Blood Partial Pressure O2 91 80-95 mmHg Arterial Blood HCO3 23 19-24 mmol/L Arterial Blood Oxygen Saturation 97.1 90-95 % Arterial Blood Base Excess -0.2 -9-1.8 mEq/L Arterial Blood Gas Delivery ROOM AIR [place] Test POS POS Microbiology Results 10/28/16 Blood Culture, Received Pending 10/28/16 Blood Culture, Received Pending 10/28/16 Urine Culture, Received Pending Diagnostic Radiology HEAD CT IMPRESSION: Left anterior temporal arachnoid cyst. No acute intracranial findings. CXR IMPRESSION: 1. No acute cardiopulmonary findings. 2. 1.1 cm nodular density projecting over left lower lung which was likely present on prior exams. This could reflect a nodule or nipple shadow. This is probably benign. Impression Assessment and Plan ALTERED MENTAL STATUS - admit to med/surg - patient s/p TURP and circumcision on 10/22; symptoms started ~ 48 hours after procedure; Bactrim was stopped 4 days ago as thought to be the cause of confusion however no improvement since it has been stopped; was instructed to start Cipro however has not started yet - CT head negative; no focal deficits noted on exam - etiology unclear - ? due to underlying infection due to recent procedure; U/A does not appear infected however could have partially treated UTI with recent Bactrim use - s/p Rocephin in the ER, will continue with - do not suspect sepsis - afebrile, normal WBC - urine and blood cultures - check ABG for possible CO2 retention with hx of COPD - consider MRI if patient does not improvement with above treatment S/P RECENT TURP AND CIRCUMCISION - no signs of infection at incision site HTN - BP controlled, continue metoprolol COPD - checking ABG for possible CO2 retention - no wheezing noted on exam - continue home inhalers RA - on prednisone and methotrexate, continue both SA NODE DYSFUNCTION S/P PACEMAKER - no acute issues EARLY ONSET DEMENTIA - continue donepezil BPH - continue tamsulosin and finasteride DVT PROPHYLAXIS - SQ Lovenox CODE STATUS - Patient is a full code as per my discussion with patient's sisters who are at the bedside. DISPO - The patient will be placed as observation status for now until further work up is complete. Attending Addendum: The patient was seen and examined Admitted with Acute Confusion s/o TURP on 10/22/16 Received Bactrim and later on Cipro possibly as prophylaxis Remains confused as of this evening-no sings of infection and Negative neuro exam and CT O/E Confused Hemodynamically stable Chest-clear Heart-Regular Abdomen-benign,no masses Labs and Imaging Studies were reviewed MRI of the Head with or without Neurology consult if no improvement Agree with the assessment and plan. Dr Alex Burkett VTE Prophylaxis VTE Risk Assessment Done? Y/N: Yes Risk Level: Moderate
[2016-10-28] MEDS: BACITRACIN OINT 15 GM TUBE EXT SCH (20:00)
[2016-10-28 20:19] VITALS: PULSE 67; O2SAT 96
[2016-10-28] MEDS: TAMSULOSIN HCL 0.4 MG CAP PO SCH (20:31)
[2016-10-28] MEDS: DONEPEZIL HCL 10 MG TAB PO SCH (20:31)
[2016-10-28] MEDS: FINASTERIDE 5 MG TAB PO SCH (20:31)
[2016-10-28] MEDS: GABAPENTIN 100 MG CAP PO SCH (20:32)
[2016-10-28] MEDS: ENOXAPARIN 40 MG/0.4 ML SYR SQ SCH (21:00)
[2016-10-28 22:45] LABS: BENZODIAZEPINE, URINE NEG (NEG); COCAINE,URINE NEG (NEG); PHENCYCLIDINE, URINE NEG (NEG)
[2016-10-29] VITALS: BP 130/65; PULSE 70; TEMP 36.4; O2SAT 97
[2016-10-29 07:39] VITALS: BP 123/64; PULSE 67
[2016-10-29] MEDS: BACITRACIN OINT 15 GM TUBE EXT SCH ×3 (07:41→19:32)
[2016-10-29] MEDS: TIOTROPIUM BROMIDE 5 PUFF/90 MCG INH INH SCH (07:41)
[2016-10-29] MEDS: GABAPENTIN 100 MG CAP PO SCH ×3 (07:42→19:33)
[2016-10-29] MEDS: LORATADINE 10 MG TAB PO SCH (07:42)
[2016-10-29] MEDS: FLUTICASONE PROPIONATE NA SPR 16 GM BTL SCH (07:42)
[2016-10-29] MEDS: ATORVASTATIN 10 MG TAB PO SCH (07:42)
[2016-10-29] MEDS: ASPIRIN 81 MG ECTAB PO SCH (07:42)
[2016-10-29] MEDS: CITALOPRAM 20 MG TAB PO SCH (07:42)
[2016-10-29] MEDS: METOPROLOL SUCC 25MG EXT REL TAB PO SCH (07:43)
[2016-10-29 07:50] VITALS: BP 126/75; PULSE 63; TEMP 36.5; O2SAT 98
[2016-10-29 08:36] LABS: HEMATOCRIT 39.7 % (42-52); MEAN CELL VOLUME 98.8 fL (80-100); MEAN CORPUSCULAR HEMOGLOBIN 31.6 pg (25-34); MEAN PLATELET VOLUME 9.9 fL (7.4-10.4); PLATELET COUNT 208 K/uL (130-400); RED BLOOD COUNT 4.02 M/uL (4.7-6.1); WHITE BLOOD COUNT 9.08 K/uL (4.8-10.8)
[2016-10-29 09:10] LABS: BUN/CREATININE RATIO 28.4 (10-20); CREATININE 0.98 mg/dl (0.60-1.40); POTASSIUM 3.6 mmol/L (3.5-5.1)
[2016-10-29 09:20] LABS: CALCIUM 8.7 mg/dl (8.5-10.1)
[2016-10-29] MEDS: CEFTRIAXONE SOD INJ 1 GM in DEXTROSE 5% ADD-VANTAGE 50ML 50 ML IV SCH (11:58)
--- NOTE | 2016-10-29 14:38 | Progress Note ---
Internal Med Progress Note Date of Service: October 29, 2016. Provider Documentation: SUBJECTIVE: Patient is seen and examined at bedside. Patient reports feeling well. Offers no complaints. Family at bedside, states his mental status is improving but not at baseline. Currently he is oriented X3. Denies any burning micturition. Family states hallucinations seemed to have resolved. OBJECTIVE: Vital Signs-as noted below Physical Exam: Vitals signs as noted above General Appearance:Moderately built and nourished, no apparent distress Head: normocephalic, Atraumatic Eyes: normal inspection, EOMI, PERRL Neck: supple, Trachea midline Respiratory/Chest: Normal breath sounds, CTA Cardiovascular: S1, S2, NSR, No murmur Abdomen/GI:Soft, Non tender, Bowel sounds present Extremities/Musculoskelatal:normal inspection, + RA changes on b/l UE. Mild erythema on dorsal side of RUE. no edema Neurologic/Psych:AAOX3, grossly no focal neurological deficits Skin: normal color, warm Lab data as noted below. ASSESSMENT & PLAN: ALTERED MENTAL STATUS Family reports symptoms since after TURP and he was also diagnosed to have early dementia recently Patient s/p TURP and circumcision on 10/22 Was on Bactrim and was discontinued 4 days ago as thought to be contributing to confusion. ? etiology: DD:Partially treated UTI, Medications, dementia CT: No acute process, No focal deficits on exam Continue Rocephin for now Follow up cultures Check MRI brain Will consult Neurology S/P RECENT TURP AND CIRCUMCISION no signs of infection at incision site HTN Stable Continue metoprolol COPD No signs of exacerbation continue home inhalers RA On chronic prednisone and methotrexate SA NODE DYSFUNCTION S/P PACEMAKER Stable EARLY ONSET DEMENTIA continue donepezil BPH continue tamsulosin and finasteride DVT PX: SQ Lovenox CODE STATUS Full Code DISPOSITION: Plan to discharge home Vital Signs: Date Time Temp Pulse Resp B/P Pulse Ox O2 Delivery O2 Flow Rate FiO2 10/29/16 10:00 Room Air 10/29/16 07:50 36.5 63 18 126/75 98 Room Air 10/29/16 07:39 67 123/64 10/29/16 00:00 36.4 70 20 130/65 97 CPAP 10/29/16 00:00 CPAP 10/28/16 20:19 67 96 10/28/16 17:42 36.4 69 18 139/69 98 Room Air 10/28/16 15:52 64 18 126/69 97 10/28/16 15:01 64 18 126/69 97 Room Air Lab Results: Results Past 24 Hours Test 10/28/16 15:54 10/28/16 20:42 10/29/16 07:33 Range/Units Arterial Blood pH 7.45 7.35-7.45 Arterial Blood Partial Pressure CO2 35 35-46 mmHg Arterial Blood Partial Pressure O2 91 80-95 mmHg Arterial Blood HCO3 23 19-24 mmol/L Arterial Blood Oxygen Saturation 97.1 90-95 % Arterial Blood Base Excess -0.2 -9-1.8 mEq/L Arterial Blood Gas Delivery ROOM AIR [place] Test POS POS Urine Opiates Screen NEG NEG Urine Methadone, Qualitative NEG NEG Urine Barbiturates NEG NEG Urine Phencyclidine (PCP) Level NEG NEG Ur Amphetamine/Methamphetamine NEG NEG MDMA (Ecstasy) Screen NEG NEG Urine Benzodiazepines Screen NEG NEG Urine Cocaine Metabolite NEG NEG Urine Marijuana (THC) NEG NEG White Blood Count 9.08 4.8-10.8 K/uL Red Blood Count 4.02 4.7-6.1 M/uL Hemoglobin 12.7 14.0-18.0 g/dL Hematocrit 39.7 42-52 % Mean Corpuscular Volume 98.8 80-100 fL Mean Corpuscular Hemoglobin 31.6 25-34 pg Mean Corpuscular Hemoglobin Concent 32.0 32-36 g/dl RDW Standard Deviation 48.6 36.4-46.3 fL RDW Coefficient of Variation 13.5 11.5-14.5 % Platelet Count 208 130-400 K/uL Mean Platelet Volume 9.9 7.4-10.4 fL Sodium Level 142 136-145 mmol/L Potassium Level 3.6 3.5-5.1 mmol/L Chloride Level 106 98-107 mmol/L Carbon Dioxide Level 27 21-32 mmol/L Anion Gap 9.0 3-11 mmol/L Blood Urea Nitrogen 28 7-18 mg/dl Creatinine 0.98 0.60-1.40 mg/dl Est Creatinine Clear Calc Drug Dose 60.9 ml/min Estimated GFR () 87.1 Estimated GFR (Non- 75.1 BUN/Creatinine Ratio 28.4 10-20 Random Glucose 89 70-99 mg/dl Calcium Level 8.7 8.5-10.1 mg/dl
[2016-10-29 15:13] VITALS: BP 106/61; PULSE 66; TEMP 36.7; O2SAT 95
--- NOTE | 2016-10-29 16:56 | Neurology Consultation ---
Neurology Consultation Date of Consultation: October 29, 2016. Attending Physician: René James MD Primary Care Physician: Kerri Chapman M.D. Reason for Consultation: dementia exacerbation History of Present Illness Source: patient, family Sidney Marquez is a 76 year old male who presents with altered mental status. On this past week he had a circumcision and TURP on 10/[address] Chen. he has baseline dementia and lives with his sister. She and another sister are in the room. She states the night after the procedure he had increased confusion. She reports he was hallucinating and talking to the things he was seeing and not making much sense. He was given Bactrim to take after the procedure and pain medication but he never took the pain meds. When he was seen in the office for follow up a few days later, this was changed to Cipro because it was thought that the Bactrim was causing the confusion but didn't take any of it. She denies fever and chills. He has been urinating without difficulty. He has had a poor appetite but denies nausea, vomiting, or diarrhea. He has chronic exertional shortness of breath at baseline which the sister thinks is a little worse than normal. He was given a dose of Rocephin in the ED. Currently he is lying in bed and states he has not complains, no back pain, headache, vision changes, hallucinations, N, V. His appetite is back to normal. He usually has a very good appetite but during the confusion period he was not eating well. Social History Smoking Status: Former smoker Alcohol Use: former heavy alcohol use Housing Status: lives with family Allergies Coded Allergies: Penicillins (Verified Allergy, Unknown, reaction unknown, 10/22/16) Current Inpatient Medications Current Inpatient Medications Medications (Trade) Dose Ordered Sig/Ethan Route Start Time Stop Time Status Last Admin Dose Admin Enoxaparin Sodium (Lovenox Inj) 40 mg QPM SQ 10/28/16 21:00 11/27/16 20:59 Acetaminophen (Tylenol Tab) 650 mg Q4H PRN PO 10/28/16 15:15 11/27/16 15:14 10/28/16 20:36 650 MG Ondansetron HCl 4 mg 4 mg Q6H PRN IV 10/28/16 15:15 11/27/16 15:14 Ceftriaxone Sodium/Dextrose (Rocephin Inj/ Dextrose Add-Julian 50ML) 50 ml @ 100 mls/hr DAILY@1200 IV 10/29/16 12:00 11/07/16 11:59 10/29/16 11:58 100 MLS/HR Aspirin (Ecotrin Tab) 81 mg QAM PO 10/29/16 08:00 11/28/16 08:59 10/29/16 07:42 81 MG Atorvastatin Calcium (Lipitor Tab) 10 mg DAILY PO 10/29/16 08:00 11/28/16 08:59 10/29/16 07:42 10 MG Citalopram Hydrobromide (celeXA TAB) 20 mg QAM PO 10/29/16 08:00 11/28/16 08:59 10/29/16 07:42 20 MG Donepezil HCl (Aricept Tab) 10 mg QPM PO 10/28/16 21:00 11/27/16 20:59 10/28/16 20:31 10 MG Finasteride (Proscar Tab) 5 mg HS PO 10/28/16 21:00 11/27/16 20:59 10/28/16 20:31 5 MG Fluticasone Propionate (Flonase Nasal [place]) 1 sprays DAILY NA 10/29/16 08:00 11/28/16 08:59 10/29/16 07:42 1 SPRAYS Folic Acid (Folvite Tab) 1 mg DAILY PO 10/29/16 08:00 11/28/16 08:59 10/29/16 07:45 1 MG Gabapentin (Neurontin Cap) 100 mg TID PO 10/28/16 20:00 11/27/16 20:59 10/29/16 14:01 100 MG Loratadine (Claritin Tab) 10 mg QAM PO 10/29/16 08:00 11/28/16 08:59 10/29/16 07:42 10 MG Methotrexate (Methotrexate Tab) 15 mg Fr@0900 PO 10/30/16 09:00 11/29/16 08:59 Metoprolol Succinate (Toprol Xl Tab) 25 mg QAM PO 10/29/16 08:00 11/28/16 08:59 10/29/16 07:43 25 MG Prednisone (PredniSONE TAB) 10 mg QAM PO 10/29/16 08:00 11/28/16 08:59 10/29/16 07:43 10 MG Tamsulosin HCl (Flomax Cap) 0.4 mg HS PO 10/28/16 21:00 11/27/16 20:59 10/28/16 20:31 0.4 MG Tiotropium [place] (Spiriva Handihaler Inhaler) 2 puff DAILY INH 10/29/16 08:00 11/28/16 08:59 10/29/16 07:41 2 PUFF Bacitracin (Bacitracin Oint) 1 appln TID EXT 10/28/16 20:00 11/27/16 19:59 10/29/16 14:01 1 APPLN Omeprazole (Prilosec - Substitute) 20 mg QAM PO 10/29/16 08:00 11/28/16 07:59 10/29/16 07:44 20 MG Miscellaneous (Iv Fluids Completed) 1 ea PRN PRN N/A 10/28/16 15:45 10/28/17 15:44 Physical Exam Vital Signs (Past 24 Hrs): Date Time Temp Pulse Resp B/P Pulse Ox O2 Delivery O2 Flow Rate FiO2 10/29/16 15:13 36.7 66 18 106/61 95 Room Air 10/29/16 10:00 Room Air 10/29/16 07:50 36.5 63 18 126/75 98 Room Air 10/29/16 07:39 67 123/64 10/29/16 00:00 36.4 70 20 130/65 97 CPAP 10/29/16 00:00 CPAP 10/28/16 20:19 67 96 10/28/16 17:42 36.4 69 18 139/69 98 Room Air Physical Exam: Constitutional: appearance nourished, healthy and obese, very pleasant and cooperative Ears, Nose, Mouth and Throat: mucous membranes moist, no injection and skin normal, eyes normal Cardiovascular: normal S-1 and S-2 and regular rate and rhythm Respiratory: course breath sound Musculoskeletal: no peripheral edema Skin: no stigmata of neurocutaneous disease noted and normal and intact Eyes: extraocular muscles intact (EOMI) and pupils equal, round and reactive to light (PERRL) miotic NEUROLOGIC EXAMINATION: Mental status: Alert and interactive Oriented to [facility], sisters in room, 2017, know president [place], can say no ifs ands or buts, sticks out tongue, closes eyes, points to ceiling with right index finger Oriented to person Speech fluent with no evidence of aphasia Cranial Nerves smile and eye brow raise symmetric, tongue midline Coordination: finger to nose without bi pass or tremor Gait/Stance: Posture lying in bed Motor: Negative for pronator drift of out stretched arms with eyes closed. 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, hip flex plantar flex ext bilaterally 5/5 Laboratory Results Past 24 Hours: 10/29/16 07:33 10/29/16 07:33 Test 10/28/16 20:42 10/29/16 07:33 Urine Opiates Screen NEG (NEG) Urine Methadone, Qualitative NEG (NEG) Urine Barbiturates NEG (NEG) Urine Phencyclidine (PCP) Level NEG (NEG) Ur Amphetamine/Methamphetamine NEG (NEG) MDMA (Ecstasy) Screen NEG (NEG) Urine Benzodiazepines Screen NEG (NEG) Urine Cocaine Metabolite NEG (NEG) Urine Marijuana (THC) NEG (NEG) Red Blood Count 4.02 M/uL (4.7-6.1) Mean Corpuscular Volume 98.8 fL (80-100) Mean Corpuscular Hemoglobin 31.6 pg (25-34) Mean Corpuscular Hemoglobin Concent 32.0 g/dl (32-36) RDW Standard Deviation 48.6 fL (36.4-46.3) RDW Coefficient of Variation 13.5 % (11.5-14.5) Mean Platelet Volume 9.9 fL (7.4-10.4) Anion Gap 9.0 mmol/L (3-11) Est Creatinine Clear Calc Drug Dose 60.9 ml/min Estimated GFR () 87.1 Estimated GFR (Non- 75.1 BUN/Creatinine Ratio 28.4 (10-20) Calcium Level 8.7 mg/dl (8.5-10.1) Imaging CT head- Left anterior temporal arachnoid cyst. No acute intracranial findings. Impression 76 year old male with history of TURP and circumcision. History of dementia with superimposed delirium Plan 1. baseline dementia seen in our office by Jean Marie Batista NP- currently on Aricept 10 mg hs-continue 2. no further testing needed at this time-delirium resolving 3. MRI brain scheduled -ok 4. continue to follow up for prostrate and urinary issues 5. PT/OT for discharge needs 6. may need walker as sister thinks he is a little off balance since surgery. 7. follow up with Jean Marie Batista [employer] as outpatient for any medication changes I have seen and discussed above patient with Dr Lisy Westbrook, neurology Pt seen and examined. Pt with dementia who was increasingly confused post TURP/ circ. Pt awake, alert, oriented, tearful at times, Face symmetric, no drift, symmetric LE strength. Suspect related to anesthesia, meds, possibly bactrim as well. Pt has gradually improved back to baseline which supports this. Agree with PT eval. Follow-up in our office for regular follow-up LAURA Westbrook MD
[2016-10-29] MEDS: TAMSULOSIN HCL 0.4 MG CAP PO SCH (19:32)
[2016-10-29] MEDS: FINASTERIDE 5 MG TAB PO SCH (19:32)
[2016-10-29] MEDS: DONEPEZIL HCL 10 MG TAB PO SCH (19:33)
[2016-10-29] MEDS: ENOXAPARIN 40 MG/0.4 ML SYR SQ SCH (19:34)
[2016-10-29 21:45] VITALS: PULSE 74; O2SAT 95
[2016-10-29 22:39] VITALS: BP 131/79; PULSE 72; TEMP 36.7; O2SAT 97
[2016-10-30 07:29] VITALS: BP 134/76; PULSE 78; TEMP 36.8; O2SAT 96
[2016-10-30] MEDS: CITALOPRAM 20 MG TAB PO SCH (07:46)
[2016-10-30] MEDS: METOPROLOL SUCC 25MG EXT REL TAB PO SCH (07:46)
[2016-10-30] MEDS: LORATADINE 10 MG TAB PO SCH (07:46)
[2016-10-30] MEDS: GABAPENTIN 100 MG CAP PO SCH ×2 (07:46→14:07)
[2016-10-30] MEDS: BACITRACIN OINT 15 GM TUBE EXT SCH ×2 (07:46→14:07)
[2016-10-30] MEDS: ASPIRIN 81 MG ECTAB PO SCH (07:46)
[2016-10-30] MEDS: ATORVASTATIN 10 MG TAB PO SCH (07:47)
[2016-10-30] MEDS: FLUTICASONE PROPIONATE NA SPR 16 GM BTL SCH (07:48)
[2016-10-30] MEDS: TIOTROPIUM BROMIDE 5 PUFF/90 MCG INH INH SCH (07:48)
[2016-10-30 07:53] LABS: BASO % 0.2 %; BASO ABS # 0.02 K/uL (0-0.2); COMPLETE YES; IG% 0.2 %; LYMPH % 15.1 %; LYMPH ABS # 1.45 K/uL (1.2-3.4); MEAN CELL VOLUME 97.7 fL (80-100); MEAN CORPUSCULAR HEMOGLOBIN 31.8 pg (25-34); MEAN CORPUSCULAR HGB CONC 32.6 g/dl (32-36); MEAN PLATELET VOLUME 9.9 fL (7.4-10.4); MONO % 10.2 %; NEUT % 72.3 %; PLATELET COUNT 229 K/uL (130-400); RED BLOOD COUNT 3.99 M/uL (4.7-6.1); WHITE BLOOD COUNT 9.59 K/uL (4.8-10.8)
[2016-10-30 09:00] LABS: BUN/CREATININE RATIO 21.7 (10-20); CALCIUM 8.3 mg/dl (8.5-10.1); CREATININE 0.99 mg/dl (0.60-1.40); POTASSIUM 3.5 mmol/L (3.5-5.1)
[2016-10-30] MEDS ORDERED: METHOTREXATE 2.5 MG TAB PO SCH (09:00)
[2016-10-30] MEDS: CEFTRIAXONE SOD INJ 1 GM in DEXTROSE 5% ADD-VANTAGE 50ML 50 ML IV SCH (12:13)
--- NOTE | 2016-10-30 13:40 | Progress Note ---
Internal Med Progress Note Date of Service: October 30, 2016. Provider Documentation: SUBJECTIVE: Patient is seen and examined at bedside. States feeling better. Offers no complaints. Family at bedside. Mental status back to baseline. OBJECTIVE: Vital Signs-as noted below Physical Exam: Vitals signs as noted above General Appearance:Moderately built and nourished, no apparent distress Head: normocephalic, Atraumatic Eyes: normal inspection, EOMI, PERRL Neck: supple, Trachea midline Respiratory/Chest: Normal breath sounds, CTA Cardiovascular: S1, S2, NSR, No murmur Abdomen/GI:Soft, Non tender, Bowel sounds present Extremities/Musculoskelatal:normal inspection, + RA changes on b/l UE. Mild erythema on dorsal side of RUE. no edema Neurologic/Psych:AAOX3, grossly no focal neurological deficits Skin: normal color, warm Lab data as noted below. ASSESSMENT & PLAN: ALTERED MENTAL STATUS Family reports symptoms since after TURP and he was also diagnosed to have early dementia recently Patient s/p TURP and circumcision on 10/22 Was on Bactrim and was discontinued 4 days ago as thought to be contributing to confusion. ? etiology: DD:Partially treated UTI, Medications, dementia, related anesthesia , Possibly Bactrim CT: No acute process, No focal deficits on exam Received Rocephin: for 2 days Blood and Urine Cultures: Negative to date Could not get MRI brain: Has Pacemaker Appreciate Neurology Input S/P RECENT TURP AND CIRCUMCISION no signs of infection at incision site HTN Stable Continue metoprolol COPD No signs of exacerbation continue home inhalers RA On chronic prednisone and methotrexate SA NODE DYSFUNCTION S/P PACEMAKER Stable EARLY ONSET DEMENTIA continue donepezil BPH continue tamsulosin and finasteride DVT PX: SQ Lovenox CODE STATUS Full Code DISPOSITION: Plan to discharge home today Follow up with on 11/03/16 at 10:45AM Follow up with your Neurologist in 1 month as advised Complete the Ciprofloxacin Antibiotic course as advised Vital Signs: Date Time Temp Pulse Resp B/P Pulse Ox O2 Delivery O2 Flow Rate FiO2 10/30/16 08:00 Room Air 10/30/16 07:29 36.8 78 18 134/76 96 Room Air 10/30/16 04:00 CPAP 10/29/16 23:55 CPAP 10/29/16 22:39 36.7 72 18 131/79 97 BiPAP 10/29/16 21:45 74 95 10/29/16 18:24 Room Air 10/29/16 15:13 36.7 66 18 106/61 95 Room Air Lab Results: Results Past 24 Hours Test 10/30/16 07:23 Range/Units White Blood Count 9.59 4.8-10.8 K/uL Red Blood Count 3.99 4.7-6.1 M/uL Hemoglobin 12.7 14.0-18.0 g/dL Hematocrit 39.0 42-52 % Mean Corpuscular Volume 97.7 80-100 fL Mean Corpuscular Hemoglobin 31.8 25-34 pg Mean Corpuscular Hemoglobin Concent 32.6 32-36 g/dl Platelet Count 229 130-400 K/uL Mean Platelet Volume 9.9 7.4-10.4 fL Neutrophils (%) (Auto) 72.3 % Lymphocytes (%) (Auto) 15.1 % Monocytes (%) (Auto) 10.2 % Eosinophils (%) (Auto) 2.0 % Basophils (%) (Auto) 0.2 % Neutrophils # (Auto) 6.93 1.4-6.5 K/uL Lymphocytes # (Auto) 1.45 1.2-3.4 K/uL Monocytes # (Auto) 0.98 0.11-0.59 K/uL Eosinophils # (Auto) 0.19 0-0.5 K/uL Basophils # (Auto) 0.02 0-0.2 K/uL RDW Standard Deviation 47.4 36.4-46.3 fL RDW Coefficient of Variation 13.2 11.5-14.5 % Immature Granulocyte % (Auto) 0.2 % Immature Granulocyte # (Auto) 0.02 0.00-0.02 K/uL Sodium Level 142 136-145 mmol/L Potassium Level 3.5 3.5-5.1 mmol/L Chloride Level 107 98-107 mmol/L Carbon Dioxide Level 28 21-32 mmol/L Anion Gap 7.0 3-11 mmol/L Blood Urea Nitrogen 22 7-18 mg/dl Creatinine 0.99 0.60-1.40 mg/dl Est Creatinine Clear Calc Drug Dose 60.3 ml/min Estimated GFR () 86.0 Estimated GFR (Non- 74.2 BUN/Creatinine Ratio 21.7 10-20 Random Glucose 100 70-99 mg/dl Calcium Level 8.3 8.5-10.1 mg/dl
[2016-10-30] MEDS ORDERED: CPR500 PO ×2 (13:43→13:44)
--- NOTE | 2016-10-30 13:51 | Discharge Summary ---
Discharge Summary Date of Service October 30, 2016. Discharge Summary Admission Date: October 28, 2016 at 15:06 Discharge Date: October 30, 2016 Discharge Disposition: Home Principal Diagnosis: Altered Mental Status Procedures: CT head: Left anterior temporal arachnoid cyst. No acute intracranial findings. CXR: 1. No acute cardiopulmonary findings. 2. 1.1 cm nodular density projecting over left lower lung which was likely present on prior exams. This could reflect a nodule or nipple shadow. This is probably benign. Consultations: Neurology Pending Studies/Follow-Up: Follow up with on 11/03/16 at 10:45AM Follow up with your Neurologist in 1 month as advised Complete the Ciprofloxacin Antibiotic course as advised Seek immediate medical attention if your symptoms reoccur or worsen Medication Reconciliation Continued Medications: Albuterol Hfa (Ventolin Hfa) 200 Puffs/31261 Mcg Aers 2 PUFFS INH Q4 PRN for SOB/Wheezing, #1 INHALER Aspirin (Aspirin Ec) 81 Mg Tab 81 MG PO QAM Atorvastatin (Lipitor) 10 Mg Tab 1 TAB PO DAILY for 30 Days, #30 TAB 5 Refills Ciprofloxacin (Ciprofloxacin HCl) 500 Mg Tab 500 MG PO BID for 5 Days, #10 Citalopram (Citalopram Hydrobromide) 20 Mg Tab 20 MG PO QAM Donepezil Hydrochloride (Aricept) 10 Mg Tab 10 MG PO QPM, TAB Finasteride (Proscar) 5 Mg Tab 5 MG PO HS, TAB Fluticasone Propionate (Fluticasone Propionate) 120 Sprays/6000 Mcg Inha 1 SPRAY NA DAILY Folic Acid (Folvite) 1 Mg Tab 1 MG PO DAILY, TAB Gabapentin (Neurontin) 100 Mg Cap 100 MG PO TID, CAP Hydrocortisone (Hydrocortisone 2.5%) 30 Gm Cr 1 APPLN TOP BID PRN apply to affected area prn Loratadine (Claritin) 10 Mg Tab 10 MG PO QAM, TAB Methotrexate (Methotrexate) 2.5 Mg Tab 15 MG PO WK, 0 Refills takes 6 tabs on wednesday's Metoprolol Succinate (Toprol Xl) 25 Mg Tabcr 25 MG PO QAM, #30 TAB Omeprazole (Prilosec) 20 Mg Capcr 20 MG PO QAM, CAP Prednisone (Prednisone) 5 Mg Tab 10 MG PO QAM, 0 Refills Tamsulosin Hcl (Flomax) 0.4 Mg Cap 0.4 MG PO HS, CAP Tiotropium [place] (Spiriva Handihaler) 30 Puff/540 Mcg Aerp 1 CAP INH DAILY, INHALER Admission Information HPI (per Admitting provider): 76 year old male who presents to the ER with altered mental status. Patient underwent circumcision and GLTURP on 10/[address] Chen. Patient has early onset dementia and lives with his sister who is at the bedside and provides information. She reports that the day following his procedure she noted increased confusion. She reports he was hallucinating and talking to the things he was seeing. She reports he did not make much sense. She reports he also has been very restless. He was given Bactrim to take after the procedure. When he was seen in the office for follow up a few days later, this was changed to Cipro because it was thought that the Bactrim was causing the confusion, however she reports he has not started taking it yet. Symptoms continued through to today and he was referred to the ER for further evaluation. She denies fever and chills. He has been urinating without difficulty. He has had a poor appetite but denies nausea, vomiting, or diarrhea. He has chronic exertional shortness of breath at baseline which the sister thinks is a little worse than normal. No reports of chest pain, lightheadedness, dizziness, or syncopal events. She denies noticing any unilateral weakness, facial droop, or slurred speech. In the ER, patient's work up is unremarkable. He was given a dose of Rocephin. Physical Exam (per Admitting): General Appearance: no apparent distress Head: normocephalic Eyes: normal inspection ENT: hearing grossly normal Neck: supple, no JVD Respiratory/Chest: lungs clear, normal breath sounds, no respiratory distress Cardiovascular: regular rate, rhythm, no edema, normal peripheral pulses Abdomen/GI: normal bowel sounds, non tender, soft Genitourinary - Male: + pertinent finding (surgical incision noted to the posterior side of the penis, sutures intact, no errythema or drainage noted) Extremities/Musculoskelatal: no calf tenderness, + pertinent finding ( finger contractures and hand joint swelling from RA noted) Neurologic/Psych: no motor/sensory deficits, + pertinent finding (sleeping during exam, awakens easily; disoriented to time and situation, poor insight and forgetfullness noted) Skin: normal color, warm/dry Hospital Course ALTERED MENTAL STATUS Family reports symptoms since after TURP and he was also diagnosed to have early dementia recently Patient s/p TURP and circumcision on 10/22 Was on Bactrim and was discontinued 4 days ago as thought to be contributing to confusion. ? etiology: DD:Partially treated UTI, Medications, dementia, related anesthesia , Possibly Bactrim CT: No acute process, No focal deficits on exam Received Rocephin: for 2 days Blood and Urine Cultures: Negative to date Could not get MRI brain: Has Pacemaker Appreciate Neurology Input S/P RECENT TURP AND CIRCUMCISION no signs of infection at incision site HTN Stable Continue metoprolol COPD No signs of exacerbation continue home inhalers RA On chronic prednisone and methotrexate SA NODE DYSFUNCTION S/P PACEMAKER Stable EARLY ONSET DEMENTIA continue donepezil BPH continue tamsulosin and finasteride DVT PX: SQ Lovenox CODE STATUS Full Code DISPOSITION: Plan to discharge home today Follow up with on 11/03/16 at 10:45AM Follow up with your Neurologist in 1 month as advised Complete the Ciprofloxacin Antibiotic course as advised Total time spent on discharge = This includes examination of the patient, discharge planning, medication reconciliation, and communication with other providers. Discharge Instructions Discharge Instructions Date of Service October 30, 2016. Admission Reason for Admission: Altered Mental Status Discharge Discharge Diagnosis / Problem: Altered Mental Status Discharge Goals Goal(s): Decrease discomfort, Improve function Activity Recommendations Activity Limitations: resume your previous activity Exercise/Sports Limitations: as tolerated . Instructions / Follow-Up Instructions / Follow-Up Follow up with on 11/03/16 at 10:45AM Follow up with your Neurologist in 1 month as advised Complete the Ciprofloxacin Antibiotic course as advised Seek immediate medical attention if your symptoms reoccur or worsen Current Hospital Diet Patient's current hospital diet: AHA Diet (Heart Healthy) Discharge Diet Recommended Diet: AHA Diet (Heart Healthy) Pending Studies Studies pending at discharge: no Medical Emergencies . Who to Call and When: Medical Emergencies: If at any time you feel your situation is an emergency, please call 911 immediately. . Non-Emergent Contact Non-Emergency issues call your: Primary Care Provider, Neurologist Call Non-Emergent contact if: you have a fever, your pain is not controlled, your pain is worsening, your pain is unusual for you, you have any medication questions If you have recurrence of confusion . . "Provider Documentation" section prepared by René James. . VTE Core Measure Inpt VTE Proph given/why not?: Enoxaparin (Lovenox)SQ
[2016-10-30 14:17] VITALS: BP 134/76; PULSE 78; TEMP 36.8; O2SAT 96
== END 2016-10-30 14:54 | disposition home or self-care (01) ==
LOC: ENRESERVDT → ENRESERVTM → C.EDB 11:13 → C.MS4W 15:06
PROVIDERS: ADMIT Internal Medicine; ATTEND Internal Medicine
DX: G30.0 Alzheimer's disease with early onset (principal); F02.80 Dementia in other diseases classified elsewhere, unspecified severity, without behavioral disturbance, psychotic disturbance, mood disturbance, and anxiety; F05 Delirium due to known physiological condition; G93.0 Cerebral cysts; I10 Essential (primary) hypertension; I49.5 Sick sinus syndrome; J44.9 Chronic obstructive pulmonary disease, unspecified; M06.9 Rheumatoid arthritis, unspecified; N40.0 Benign prostatic hyperplasia without lower urinary tract symptoms; M81.0 Age-related osteoporosis without current pathological fracture; Z87.891 Personal history of nicotine dependence; Z79.82 Long term (current) use of aspirin; Z79.899 Other long term (current) drug therapy; Z95.0 Presence of cardiac pacemaker